=== PATIENT | female | born 1965 | race Caucasian/White ===

== ENCOUNTER 2018-08-23 22:55 | Emergency (ER) | payer SELFPAY, OTHER ==
[2018-08-24] MEDS: DIAZEPAM 5 MG TAB PO (05:37)
[2018-08-24] MEDS: traMADol 50 MG TAB PO (05:37)
[2018-08-24] MEDS: KETOROLAC 60 MG INJ IM (05:37)
== END 2018-08-24 06:44 | disposition home or self-care (01) ==
LOC: FTE 22:55
DX: S16.1XXA Strain of muscle, fascia and tendon at neck level, initial encounter (principal); X58.XXXA Exposure to other specified factors, initial encounter; Y92.9 Unspecified place or not applicable
CPT/HCPCS: 93005; 96372; 99284-25